=== PATIENT | male | born 1970 | race Caucasian/White ===

== ENCOUNTER 2022-07-27 18:52 | Inpatient (IN) | payer OTHER ==
[2022-07-27 19:06] VITALS: BMI 33.7
[2022-07-27] MEDS ORDERED: SODIUM CHLORIDE 3,293 ML IV ONE (19:53)
[2022-07-27] MEDS ORDERED: VANCOMYCIN 1 GM in D5W (PRE-DOCKED) 1,000 MG/250 ML (RESTRICTED TO ID ONLY IVPB ONE (20:41)
[2022-07-27] MEDS ORDERED: PIPERACILLIN/TAZOB 3.375 GM 3.375 GM in DEXTROSE 5%-WATER - 50 ML IVPB ONE (20:41)
[2022-07-27] MEDS ORDERED: VANCOMYCIN/WATER FOR INJ (PEG) 1,000 MG/200 ML BAG IVPB ONE (20:45)
[2022-07-27] MEDS ORDERED: PIPERACILLIN/TAZOB 3.375 GM 3.375 GM/50 ML BAG IVPB ONE (20:45)
[2022-07-27 20:57] LABS: BASO % 0.4 % (0-2.0); EOS % 0.7 % (0-4.5); HEMATOCRIT 39.9 % (35.4-49); HEMOGLOBIN 13.3 GM/dL (11.7-16.9); MCH 29.6 pg (25.7-33.7); MCHC 33.4 g/dl (32.0-35.9); MEAN CELL VOLUME 88.6 fl (80-96); MEAN PLT VOLUME 8.3 fl (7.5-11.1); MONO % 12.8 % (3.8-10.2); NEUT % 64.1 % (42.8-82.8); PLATELET COUNT 372 10^3/uL (134-434); RDW 12.3 % (11.9-15.9); WHITE BLOOD COUNT 15.6 K/mm3 (4.0-10.0)
[2022-07-27] MEDS ORDERED: ACETAMINOPHEN 1000 MG/100 ML BAG IVPB ONE (21:03)
[2022-07-27 21:07] LABS: INR 1.16 (0.83-1.09); PROTHROMBIN TIME (PATIENT) 13.4 SEC (9.7-13.0)
[2022-07-27 21:09] LABS: ACTIVATED PTT 30.6 SECONDS (25.2-36.5); VENOUS BASE EXCESS 2.5 mmol/L (-2-2); VENOUS PCO2 38.4 mmHg (38-52); VENOUS PH 7.454 (7.310-7.410)
[2022-07-27] MEDS ORDERED: ACETAMINOPHEN INJECTION 100 ML IVPB ONE (21:13)
[2022-07-27 21:24] LABS: CHLORIDE 101 mmol/L (98-107); SODIUM 137 mmol/L (136-145)
[2022-07-27 21:26] LABS: CALCIUM 8.4 mg/dL (8.5-10.1)
[2022-07-27 21:27] LABS: ALBUMIN 2.6 g/dl (3.4-5.0); ANION GAP 8 MMOL/L (8-16); BLOOD UREA NITROGEN 8.6 mg/dL (7-18); CO2 28 mmol/L (21-32); GLUCOSE,RANDOM 367 mg/dL (74-106)
[2022-07-27 21:31] LABS: CREATININE 1.2 mg/dL (0.55-1.3); SGOT/AST 17 U/L (15-37); SGPT/ALT 19 U/L (13-61)
[2022-07-27 21:33] LABS: ALK PHOS 98 U/L (45-117); BILIRUBIN,TOTAL 0.2 mg/dL (0.2-1); TOT PROT 6.2 g/dl (6.4-8.2)
[2022-07-27] MEDS ORDERED: SODIUM CHLORIDE 1,000 ML IV STA (23:55)
[2022-07-28] MEDS ORDERED: BUPIVACAINE HCL/PF 0.5% (5MG/ML) 10 ML VIAL IJ ONE
[2022-07-28] MEDS ORDERED: LIDOCAINE 1% P/F 10 MG/ML VIAL INF ONE
[2022-07-28 00:20] LABS: PH,URINE 5.5 (5.0-8.0); URINE APPEARANCE CLEAR; URINE BILIRUBIN NEGATIVE (NEGATIVE); URINE COLOR YELLOW; URINE GLUCOSE (UA) 3+ (NEGATIVE); URINE KETONE 1+ (NEGATIVE); URINE LEUK ESTERASE NEGATIVE (NEGATIVE); URINE NITRITE NEGATIVE (NEGATIVE); URINE PROTEIN NEGATIVE (NEGATIVE); URINE UROBILINOGEN 0.2 mg/dL (0.2-1.0)
[2022-07-28] MEDS ORDERED: morphine CARPU-JECT 4 MG/1 ML DISP.SYRIN IVPUSH ONE (00:28)
[2022-07-28] MEDS ORDERED: morphine SULFATE 4 MG/ML VIAL ONE (00:39)
[2022-07-28] MEDS ORDERED: PIPERACILLIN/TAZOB 3.375 GM 3.375 GM/50 ML BAG IVPB ONE (03:09)
[2022-07-28] MEDS ORDERED: morphine SULFATE 4 MG/ML VIAL IVPUSH ONE (03:12)
[2022-07-28] MEDS ORDERED: PIPERACILLIN/TAZOB 3.375 GM 3.375 GM in DEXTROSE 5%-WATER - 50 ML IVPB SCH ×2 (04:00→18:00)
[2022-07-28] MEDS ORDERED: SODIUM CHLORIDE 1,000 ML IV SCH (05:00)
[2022-07-28 06:27] LABS: BASO % 0.3 % (0-2.0); EOS % 0.6 % (0-4.5); HEMATOCRIT 38.4 % (35.4-49); HEMOGLOBIN 12.8 GM/dL (11.7-16.9); LYMPH % 16.6 % (8-40); MCH 29.7 pg (25.7-33.7); MCHC 33.2 g/dl (32.0-35.9); MEAN CELL VOLUME 89.4 fl (80-96); MEAN PLT VOLUME 8.1 fl (7.5-11.1); MONO % 13.4 % (3.8-10.2); NEUT % 69.1 % (42.8-82.8); PLATELET COUNT 354 10^3/uL (134-434); RDW 12.7 % (11.9-15.9); WHITE BLOOD COUNT 16.1 K/mm3 (4.0-10.0)
[2022-07-28 06:59] LABS: CALCIUM 8.1 mg/dL (8.5-10.1)
[2022-07-28 07:01] LABS: ALBUMIN 2.4 g/dl (3.4-5.0); BLOOD UREA NITROGEN 7.5 mg/dL (7-18)
[2022-07-28 07:03] LABS: CREATININE 0.9 mg/dL (0.55-1.3)
[2022-07-28 07:05] LABS: BILIRUBIN,TOTAL 0.4 mg/dL (0.2-1); TOT PROT 5.8 g/dl (6.4-8.2)
[2022-07-28] MEDS ORDERED: VANCOMYCIN PREMIX 1.5 GM 1,500 MG/300 ML BAG IVPB SCH ×2 (09:00→21:00)
[2022-07-28] MEDS ORDERED: BUPIVACAINE HCL/PF 0.5% (5MG/ML) 10 ML VIAL ONE (09:50)
[2022-07-28] MEDS ORDERED: MIDAZOLAM HCL 2 MG/2 ML SINGLE DOSE VIAL ONE (10:28)
[2022-07-28] MEDS ORDERED: PROPOFOL 20 ML ONE (10:53)
[2022-07-28] MEDS ORDERED: INSULIN SLIDING SCALE (NOVOLOG) 1 VIAL SQ SCH (11:00)
[2022-07-28] MEDS ORDERED: HYDROGEN PEROXIDE 473 ML PO ONE (11:02)
[2022-07-28] MEDS ORDERED: ACETAMINOPHEN 1000 MG/100 ML BAG IVPB PRN (16:49)
[2022-07-28] MEDS: oxyCODONE HCL 5 MG TABLET PO PRN ×2 (17:21→21:53)
[2022-07-28] MEDS: INSULIN SLIDING SCALE (NOVOLOG) 1 VIAL SQ SCH ×2 (17:24→21:48)
[2022-07-28] MEDS: SODIUM CHLORIDE 1,000 ML IV SCH (17:25)
[2022-07-28] MEDS: PIPERACILLIN/TAZOB 3.375 GM 3.375 GM in DEXTROSE 5%-WATER - 50 ML IVPB SCH (17:40)
[2022-07-28] MEDS: VANCOMYCIN PREMIX 1.5 GM 1,500 MG/300 ML BAG IVPB SCH (21:54)
[2022-07-29] MEDS ORDERED: PIPERACILLIN/TAZOB 3.375 GM 3.375 GM in DEXTROSE 5%-WATER - 50 ML IVPB SCH (02:00)
[2022-07-29] MEDS: PIPERACILLIN/TAZOB 3.375 GM 3.375 GM in DEXTROSE 5%-WATER - 50 ML IVPB SCH ×3 (02:06→17:29)
[2022-07-29] MEDS: INSULIN SLIDING SCALE (NOVOLOG) 1 VIAL SQ SCH ×4 (06:14→21:54)
[2022-07-29 08:06] LABS: BASO % 0.3 % (0-2.0); EOS % 1.4 % (0-4.5); HEMOGLOBIN 12.5 GM/dL (11.7-16.9); LYMPH % 21.7 % (8-40); MCH 30.7 pg (25.7-33.7); MCHC 34.6 g/dl (32.0-35.9); MEAN CELL VOLUME 88.6 fl (80-96); MEAN PLT VOLUME 8.4 fl (7.5-11.1); MONO % 10.2 % (3.8-10.2); NEUT % 66.4 % (42.8-82.8); PLATELET COUNT 348 10^3/uL (134-434); RBC 4.07 M/mm3 (4.00-5.60); RDW 12.4 % (11.9-15.9); WHITE BLOOD COUNT 14.1 K/mm3 (4.0-10.0)
[2022-07-29 08:13] LABS: CALCIUM 8.3 mg/dL (8.5-10.1)
[2022-07-29 08:14] LABS: BLOOD UREA NITROGEN 7.4 mg/dL (7-18)
[2022-07-29 08:17] LABS: CREATININE 0.7 mg/dL (0.55-1.3)
[2022-07-29] MEDS ORDERED: VANCOMYCIN PREMIX 1.5 GM 1,500 MG/300 ML BAG IVPB SCH (09:00)
[2022-07-29] MEDS: VANCOMYCIN PREMIX 1.5 GM 1,500 MG/300 ML BAG IVPB SCH ×2 (09:34→20:31)
[2022-07-29] MEDS: oxyCODONE HCL 5 MG TABLET PO PRN ×2 (09:35→20:28)
[2022-07-29] MEDS ORDERED: INSULIN (NOVOLOG) ASPART 100 UNITS/ML 10ML VIAL ONE ×2 (12:16→17:10)
[2022-07-29] MEDS: SODIUM CHLORIDE 1,000 ML IV SCH (12:18)
[2022-07-30] MEDS: oxyCODONE HCL 5 MG TABLET PO PRN ×4 (02:19→22:19)
[2022-07-30] MEDS: PIPERACILLIN/TAZOB 3.375 GM 3.375 GM in DEXTROSE 5%-WATER - 50 ML IVPB SCH ×2 (02:21→09:45)
[2022-07-30] MEDS: INSULIN SLIDING SCALE (NOVOLOG) 1 VIAL SQ SCH ×4 (06:40→22:20)
[2022-07-30] MEDS ORDERED: INSULIN (NOVOLOG) ASPART 100 UNITS/ML 10ML VIAL ONE ×3 (06:48→21:24)
[2022-07-30] MEDS: VANCOMYCIN PREMIX 1.5 GM 1,500 MG/300 ML BAG IVPB SCH (10:18)
[2022-07-30] MEDS: SODIUM CHLORIDE 1,000 ML IV SCH (13:18)
[2022-07-30] MEDS: CEFAZOLIN SODIUM 2 GM in DEXTROSE 5%-WATER 100 ML IVPB SCH ×2 (13:19→17:35)
[2022-07-31] MEDS: CEFAZOLIN SODIUM 2 GM in DEXTROSE 5%-WATER 100 ML IVPB SCH ×3 (02:19→17:36)
[2022-07-31] MEDS: INSULIN SLIDING SCALE (NOVOLOG) 1 VIAL SQ SCH ×3 (06:35→17:37)
[2022-07-31] MEDS ORDERED: INSULIN (LEVEMIR) 100 UNITS/ML UNITS SQ SCH (07:30)
[2022-07-31 08:34] LABS: BASO % 0.4 % (0-2.0); EOS % 2.5 % (0-4.5); HEMATOCRIT 37.4 % (35.4-49); HEMOGLOBIN 13.2 GM/dL (11.7-16.9); LYMPH % 32.4 % (8-40); MCH 30.9 pg (25.7-33.7); MCHC 35.2 g/dl (32.0-35.9); MEAN CELL VOLUME 87.9 fl (80-96); MEAN PLT VOLUME 7.8 fl (7.5-11.1); MONO % 6.1 % (3.8-10.2); NEUT % 58.6 % (42.8-82.8); PLATELET COUNT 399 10^3/uL (134-434); RBC 4.25 M/mm3 (4.00-5.60); RDW 12.4 % (11.9-15.9); WHITE BLOOD COUNT 10.7 K/mm3 (4.0-10.0)
[2022-07-31 09:03] VITALS: RESP 18
[2022-07-31 09:20] LABS: CALCIUM 8.8 mg/dL (8.5-10.1)
[2022-07-31 09:21] LABS: ALBUMIN 2.4 g/dl (3.4-5.0); BLOOD UREA NITROGEN 5.7 mg/dL (7-18)
[2022-07-31 09:24] LABS: CREATININE 0.7 mg/dL (0.55-1.3)
[2022-07-31 09:26] LABS: BILIRUBIN,TOTAL 0.3 mg/dL (0.2-1)
[2022-07-31] MEDS ORDERED: RAMIPRIL 2.5 MG CAPSULE PO SCH (10:15)
[2022-07-31] MEDS ORDERED: INSULIN (NOVOLOG) ASPART 100 UNITS/ML 10ML VIAL ONE ×2 (11:26→17:26)
[2022-07-31 14:40] VITALS: BP 151/89; PULSE 72; TEMP 98.1
[2022-07-31] MEDS ORDERED: ROSUVASTATIN CA 5 MG TABLET PO SCH (22:00)
== END 2022-07-31 19:00 | disposition home health service (06) | DRG 603 ==
LOC: JERFT 18:52 → JER 18:52 → JERBED 23:07 → J4W 07-28 09:28
PROVIDERS: ADMIT Family Medicine; ATTEND Family Medicine
PROC: 0J970ZZ Drainage of Back Subcutaneous Tissue and Fascia, Open Approach (ICD-10-PCS; principal; 2022-07-28 14:00)
DX: L02.212 Cutaneous abscess of back [any part, except buttock and flank] (principal); J45.909 Unspecified asthma, uncomplicated; R77.8 Other specified abnormalities of plasma proteins; E11.65 Type 2 diabetes mellitus with hyperglycemia; Z79.84 Long term (current) use of oral hypoglycemic drugs; B95.61 Methicillin susceptible Staphylococcus aureus infection as the cause of diseases classified elsewhere
CPT/HCPCS: 0241U-QW; 36415; 70491-TC; 71045-TC-FY; 71260-TC; 80048; 80053; 80061; 81003; 82550; 82553; 82803; 82962; 83036; 83605; 84484; 85025; 85610; 85730; 86850; 86900; 86901; 87040; 87070; 87075; 87086; 87186; 87205; 93005; 93010; 94760; 99285-25